=== PATIENT | female | born 1975 | race African-American/Black ===

== ENCOUNTER 2019-05-17 01:04 | Emergency (ER) | payer SELFPAY ==
[~2019-05-17] VITALS: Ht 182.9 cm; Wt 140.6 kg
[~2019-05-17 01:04] MED LIST: CIPROFLOXACIN500 M2 ORAL; DILTIAZEM 24HR120 M1 ORAL; IBUPROFEN600 MG ORAL; NKM; NORCO 5-325 TA1 EACH ORAL
[2019-05-17 01:15] VITALS: BP 208/122
--- NOTE | 2019-05-17 01:15 | NUR ---
ED Nurse Note: Pt walked in with a friend. Pt AAOx4, VSS, with no sign of acute distress. PT WITH COUGH AND CONGESTION, FOR 2 DAYS W/ HEADACHE, DAUGHTER SICK, PAIN AT 10/10 AND SHARP.
--- NOTE | 2019-05-17 01:24 | Emergency Room Report ---
History of Present Illness General Chief Complaint: Flu Like Symptoms Source: Patient Present Illness HPI 43-year-old female presents with cough, congestion x3 days, her daughter was sick has since recovered, patient now with wheezing, nasal congestion no aggravating relieving factors severity is mild, symptoms are constant patient presents for evaluation. Allergies: Coded Allergies: No Known Allergies (Unverified , 02/05/15) Patient History Past Medical History: see triage record Last Menstrual Period: 05-06-2019 Now: No Reviewed Nursing Documentation: PMH: Agreed; PSxH: Agreed Nursing Documentation-PMH Hx Hypertension: Yes Review of Systems All Other Systems: negative except mentioned in HPI Physical Exam Vital Signs Date Time Temp Pulse Resp B/P (MAP) Pulse Ox O2 Delivery O2 Flow Rate FiO2 05/17/19 01:07 98.2 80 20 208/112 (144) 96 Room Air Sp02 EP Interpretation: reviewed, normal General Appearance: well appearing, no apparent distress, alert Head: normocephalic, atraumatic Eyes: bilateral eye PERRL, bilateral eye EOMI ENT: uvula midline, moist mucus membranes, nasal congestion Neck: supple, thyroid normal, supple/symm/no masses Respiratory: no respiratory distress, no retraction, no accessory muscle use, wheezing Cardiovascular #1: normal peripheral pulses, regular rate, rhythm, no edema, no gallop, no murmur Gastrointestinal: non tender, soft, no guarding, no rebound Musculoskeletal: normal inspection Neurologic: alert, oriented x3 Psychiatric: mood/affect normal Skin: no rash, warm/dry Medical Decision Making Diagnostic Impression: Primary Impression: Upper respiratory infection Qualified Codes: J06.9 - Acute upper respiratory infection, unspecified Additional Impression: Bronchitis ER Course 43-year-old female presents most likely with viral URI, with bronchitis. Patient given breathing tx with improvement steroids given Dispo home w/ return precautions Last Vital Signs Date Time Temp Pulse Resp B/P (MAP) Pulse Ox O2 Delivery O2 Flow Rate FiO2 05/17/19 01:07 98.2 80 20 208/112 (144) 96 Room Air Disposition: HOME, SELF-CARE Condition: Stable Scripts Cetirizine Hcl* (ZYRTEC*) 10 Mg Tablet 10 MG ORAL DAILY, #30 TAB 0 Refills Prov: Lalo Horn MD 05/17/19 Albuterol Sulfate* (ALBUTEROL SULFATE MDI*) 8.5 Gm Hfa.aer.ad 2 PUFF INH Q4H PRN for Shortness of Breath, #1 EA 0 Refills Prov: Lalo Horn MD 05/17/19 Prednisone* (PREDNISONE*) 50 Mg Tablet 50 MG ORAL DAILY, #4 TAB 0 Refills Prov: Lalo Horn MD 05/17/19 Referrals: NON PHYSICIAN (PCP) [facility] T[facility] Rader. [facility] Patient Instructions: Acute Bronchitis, [id number], Upper Respiratory Infection, Adult, [id number] Additional Instructions: The patient was provided with discharge instructions, notified to follow-up with a primary care doctor and or specialist in the next 24-48 hours, and to return to the ED if they have worsening of their symptoms. Please note that this report is being documented using [employer] technology. This can lead to erroneous entry secondary to incorrect interpretation by the dictating instrument. Lalo Horn MD May 17, 2019 01:24
[2019-05-17] MEDS ORDERED: PREDNISONE50 MG ORAL (01:26)
[2019-05-17] MEDS ORDERED: ALBUTEROL SULF8.5 GM INH (01:26)
[2019-05-17] MEDS: Ipratropium 0.02% Inh Soln 2.5ml UD HHN SCH ×3 (01:41→02:00)
[2019-05-17] MEDS: Albuterol ud Inhalation HHN SCH ×3 (01:43→02:14)
[2019-05-17] MEDS ORDERED: ZYRTEC10 MG ORAL (01:54)
--- NOTE | 2019-05-17 01:54 | NUR ---
ED Nurse Note: Pt resting with no complaints. RT tx in progress.
[2019-05-17 02:50] VITALS: BP 197/122
--- NOTE | 2019-05-17 02:50 | NUR ---
ER DISCHARGE NOTE: Patient is cleared to be discharged per ERMD, pt is aox4, on room air, with stable vital signs. pt was given dc and prescription instructions, pt was able to verbalize understanding, pt id band and iv site removed without complications. pt is able to ambulate with steady gait. pt took all belongings. Pt left with a friend.
== END 2019-05-17 02:50 | disposition home or self-care (01) ==
LOC: EMR 01:22
DX: J20.9 Acute bronchitis, unspecified (principal); J06.9 Acute upper respiratory infection, unspecified; I10 Essential (primary) hypertension
CPT/HCPCS: 94640; 94664; 99284; J7512

== ENCOUNTER 2019-10-17 00:09 | Emergency (ER) | payer MEDICAID, OTHER ==
[~2019-10-17] VITALS: Ht 182.9 cm; Wt 129.3 kg
[~2019-10-17 00:09] MED LIST changes: +ALBUTEROL SULF8.5 GM INH; +PREDNISONE50 MG ORAL; +ZYRTEC10 MG ORAL
[2019-10-17 00:29] VITALS: BP 215/132
--- NOTE | 2019-10-17 00:30 | NUR ---
ED Nurse Note: Patient walked in from home d/t unrelieved back pain, per patient, prior history of back surgery in June. Patient reports running out of pain and hypertension medications today. Patient aao x 4 and ambulatory with walker. Patient pain rated at 10/10. Patient stable upon assessment.
--- NOTE | 2019-10-17 00:33 | NUR ---
ED Nurse Note: Patient states unable to provide urine sample at this time but is actively drinking fluids.
[2019-10-17] MEDS ORDERED: Lisinopril 10mg tab ORAL ONE (00:45)
[2019-10-17] MEDS ORDERED: Labetalol 200mg tab ORAL ONE (00:45)
--- NOTE | 2019-10-17 00:49 | Emergency Room Report ---
History of Present Illness General Chief Complaint: Pain Source: Patient Present Illness HPI Patient is a 44-year-old female presents after increased back pain. Patient had reportedly had prior fusion surgery several months ago. She reports having run out of her pain medications as well as her blood pressure medications. She had previously been on labetalol 200 mg as well as lisinopril 10 mg and hydrochlorothiazide 25 mg. She states that she ran out of her pain medication today. She had been previously referred to pain management. Allergies: Coded Allergies: No Known Allergies (Unverified , 02/05/15) Patient History Past Medical History: see triage record Reviewed Nursing Documentation: PMH: Agreed; PSxH: Agreed Nursing Documentation-PMH Hx Hypertension: Yes Review of Systems All Other Systems: negative except mentioned in HPI Physical Exam Vital Signs Date Time Temp Pulse Resp B/P (MAP) Pulse Ox O2 Delivery O2 Flow Rate FiO2 10/17/19 00:13 98.6 90 18 227/138 (167) 97 Room Air Sp02 EP Interpretation: reviewed, normal General Appearance: normal inspection, well appearing, no apparent distress, alert, GCS 15, Chronically Ill Head: atraumatic ENT: normal ENT inspection, hearing grossly normal, normal voice Neck: normal inspection, full range of motion, supple, no bony tend Respiratory: normal inspection, no respiratory distress, no retraction, no wheezing Cardiovascular #1: regular rate, rhythm, no edema Gastrointestinal: normal inspection, normal bowel sounds, non tender, soft, no guarding, no hernia Genitourinary: no CVA tenderness Musculoskeletal: normal inspection, back normal, normal range of motion Neurologic: alert, motor strength/tone normal, 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 Differential diagnosis include was not limited to musculoskeletal pain, opiate withdrawal, among others. Patient has a benign exam and does not appear to require any imaging or laboratory testing at this time. Patient does not appear to have any acute issue with her back other than running out of her pain medication and her blood pressure medications. Patient was given medications for improvement in blood pressure control as well as oral pain medications. Patient does not appear to require any imaging studies at this time. Patient will be given refills for her blood pressure medications. Patient is able to ambulate with a walker. She was advised to follow-up with Dr. Del Valle for further management of her blood pressure and chronic back pain. She was advised to return if worse. This medical record is generated with [facility] medical transcription software. There may be some medical transcription discrepancies related to use of this software Labs Test 10/17/19 01:23 Urine Color Pale yellow Urine Appearance Clear Urine pH 8 (4.5-8.0) Urine Specific Mineral 1.010 (1.005-1.035) Urine Protein 2+ (NEGATIVE) Urine Glucose (UA) Negative (NEGATIVE) Urine Ketones Negative (NEGATIVE) Urine Blood 3+ (NEGATIVE) Urine Nitrite Negative (NEGATIVE) Urine Bilirubin Negative (NEGATIVE) Urine Urobilinogen Normal MG/DL (0.0-1.0) Urine Leukocyte Esterase Negative (NEGATIVE) Urine RBC 2-4 /HPF (0 - 2) Urine WBC 0 /HPF (0 - 2) Urine Squamous Epithelial Cells Many /LPF (NONE/OCC) Urine Bacteria Moderate /HPF (NONE) Urine HCG, Qualitative Negative (NEGATIVE) Urine Opiates Screen Negative (NEGATIVE) Urine Barbiturates Screen Negative (NEGATIVE) Phencyclidine (PCP) Screen Negative (NEGATIVE) Urine Amphetamines Screen Negative (NEGATIVE) Urine Benzodiazepines Screen Negative (NEGATIVE) Urine Cocaine Screen Negative (NEGATIVE) Urine Marijuana (THC) Screen Positive (NEGATIVE) Last Vital Signs Date Time Temp Pulse Resp B/P (MAP) Pulse Ox O2 Delivery O2 Flow Rate FiO2 10/17/19 00:29 98.6 98 17 215/132 98 Room Air Status: improved Disposition: HOME, SELF-CARE Condition: Stable Scripts Hydrochlorothiazide* (HYDROCHLOROTHIAZIDE*) 25 Mg Tablet 25 MG ORAL DAILY, #30 TAB Prov: Jaylan Urias MD 10/17/19 Lisinopril (LISINOPRIL*) 20 Mg Tablet 20 MG ORAL DAILY, #30 TAB Prov: Jaylan Urias MD 10/17/19 Labetalol HCl (Labetalol HCl) 200 Mg Tablet 200 MG ORAL EVERY 12 HOURS, #30 TAB Prov: Jaylan Urias MD 10/17/19 Diclofenac Sodium (VOLTAREN) 100 Gm Gel..gram. 100 GM TP EVERY 12 HOURS, #120 GM Prov: Jaylan Urias MD 10/17/19 Methocarbamol* (ROBAXIN-500*) 500 Mg Tablet 500 MG ORAL TID PRN for For Pain, #15 TAB 0 Refills Prov: Jaylan Urias MD 10/17/19 Referrals: [facility],REFERRING (PCP) Jaylan Urias MD Oct 17, 2019 00:49
[2019-10-17] MEDS ORDERED: ROBAXIN-500MG ORAL (00:52)
[2019-10-17] MEDS ORDERED: NORMODYNE200 MG ORAL (00:52)
[2019-10-17] MEDS ORDERED: VOLTAREN100 G1 TP (00:52)
--- NOTE | 2019-10-17 01:32 | NUR ---
ED Nurse Note: Urine collected and sent to lab.
--- NOTE | 2019-10-17 01:34 | NUR ---
ED Nurse Note: ERMD at bedside.
[2019-10-17] MEDS ORDERED: HYDROCHLOROTHIA25 MG ORAL (01:35)
[2019-10-17] MEDS ORDERED: LISINOPRIL20 MG ORAL (01:35)
[2019-10-17 01:37] LABS: APPEARANCE,URINE CLEAR; BILIRUBIN, URINE NEGATIVE (NEGATIVE); COLOR,URINE PALE YELLOW; GLUCOSE, URINE (UA) NEGATIVE (NEGATIVE); KETONES,URINE NEGATIVE (NEGATIVE); LEUKOCYTE ESTERASE ,URINE NEGATIVE (NEGATIVE); NITRITE,URINE NEGATIVE (NEGATIVE); PH,URINE 8 (4.5-8.0); PROTEIN,URINE 2+ (NEGATIVE); UROBILINOGEN,URINE NORMAL MG/DL (0.0-1.0)
[2019-10-17 02:24] VITALS: BP 175/79
--- NOTE | 2019-10-17 02:24 | NUR ---
ER DISCHARGE NOTE: Patient is cleared to be discharged per ERMD, pt is aox4, on room air, with stable vital signs. pt was given dc and prescription instructions, pt was able to verbalize understanding, pt id band removed. pt is able to ambulate with walker. pt took all belongings. pt stable upon discharge.
== END 2019-10-17 02:24 | disposition home or self-care (01) ==
LOC: EMR 00:36
DX: G89.29 Other chronic pain (principal); M54.9 Dorsalgia, unspecified; I10 Essential (primary) hypertension
CPT/HCPCS: 80307; 81003; 81025; 87086; Z7502; 99283